=== PATIENT | male | born 1955 | race Caucasian/White ===

== ENCOUNTER 2018-05-27 06:03 | Day surgery (SDC) | payer OTHER ==
[2018-05-27] MEDS ORDERED: LR 1,000 ML IV ONE (06:11)
[2018-05-27] MEDS ORDERED: BUPIVACAINE 0.5% 30 ML SDV ONE (07:04)
[2018-05-27] MEDS ORDERED: cefOXitin SODIUM 2 GM in NS 100 ML IV ONE (07:27)
--- NOTE | 2018-05-27 07:28 | PDHPUP ---
History & Physical Update H&P update statement: This history and physical update is based on an assessment of the patient which was completed after admission or registration (within 24 hours), but prior to the surgery/procedure. H&P update: H&P reviewed & patient examined, no change in patient's condition since H&P completed
[2018-05-27] MEDS ORDERED: ONDANSETRON 4 MG/2 ML VIAL ONE (07:30)
[2018-05-27] MEDS ORDERED: ROCURONIUM 100 MG/10 ML VIAL ONE (07:30)
[2018-05-27] MEDS ORDERED: PROPOFOL 200 MG/20 ML VIAL ONE ×2 (07:30)
[2018-05-27] MEDS ORDERED: fentaNYL 250 MCG/5 ML INJ ONE (07:30)
--- NOTE | 2018-05-27 07:30 | PDANEPAE ---
ANE Past Medical History - Cardiovascular History Hx Hypertension: Yes Hx Arrhythmias: No Hx Chest Pain: No Hx Coronary Artery / Peripheral Vascular Disease: Yes Hx CHF / Valvular Disease: Yes Hx Palpitations: No Cardiovascular History Comment: RUNS 120/80 - Pulmonary History Hx COPD: No Hx Asthma/Reactive Airway Disease: No Hx Recent Upper Respiratory Infection: No Hx Oxygen in Use at Home: No Hx Sleep Apnea: No Sleep Apnea Screening Result - Last Documented: Positive - Neurologic History Hx Cerebrovascular Accident: No Hx Seizures: No Hx Dementia: No Neurologic History Comment: PERIPHERAL NEUROPATHY AMISHA FEET - Endocrine History Hx Diabetes: No Hypothyroid: No Hyperthyroid: No Obesity: no - Renal History Hx Renal Disorders: No - Liver History Hx Hepatic Disorders: No - Neurological & Psychiatric Hx Hx Neurological and Psychiatric Disorders: No - Cancer History Hx Cancer: No - Congenital Disorder History Hx Congenital Disorders: No - GI History Hx Gastrointestinal Disorders: Yes Gastrointestinal History Comment: ACID STOMACH - Other Health History Other Health History: NEG - Chronic Pain History Chronic Pain: No (NEUROPATHY) - Surgical History Prior Surgeries: FOOT R BUNIONECTOMY X 3 (W/INF X1 ). LOW BACK SURGERY ANE Review of Systems Review of Systems: - Exercise capacity METS (RN): 5 METS ANE Patient History - Allergies Allergies/Adverse Reactions: No Known Allergies Allergy (Unverified 08/30/09 00:19) - Home Medications Home Medications: Aspirin 81mg 08/30/09 [Last Taken 05/21/18] Zetia 08/30/09 [Last Taken 05/26/18] Gabapentin 05/14/18 [Last Taken 05/27/18 05:30] Herbals/Supplements -Info Only 05/14/18 [Last Taken 1 Week Ago ~05/20/18] Lisinopril 05/14/18 [Last Taken 05/27/18 05:30] Repatha Pushtronex 05/14/18 [Last Taken 1 Week Ago ~05/20/18] Sertraline HCl 05/14/18 [Last Taken 05/27/18 05:30] Finasteride 05/27/18 [Last Taken 05/27/18 05:30] Omeprazole 05/27/18 [Last Taken 05/27/18 05:30] - NPO status NPO Since - Liquids (Date): 05/26/18 NPO Since - Liquids (Time): 22:00 NPO Since - Solids (Date): 05/26/18 NPO Since - Solids (Time): 16:00 - Smoking Hx Smoking Status: Never smoked ANE Labs/Vital Signs - Vital Signs Blood Pressure: 143/98 Heart Rate: 56 Respiratory Rate: 16 O2 Sat (%): 94 Height: 179.07 cm Weight: 83.915 kg ANE Physical Exam - Airway Neck exam: FROM Mallampati Score: Class 1 Mouth exam: normal dental/mouth exam - Pulmonary Pulmonary: no respiratory distress - Cardiovascular Cardiovascular: regular rate and rhythym - ASA Status ASA Status: II ANE Anesthesia Plan Anesthesia Plan: general endotracheal anesthesia
[2018-05-27] MEDS ORDERED: LIDOCAINE 2% 100 MG/5 ML SYR ONE (07:31)
[2018-05-27] MEDS ORDERED: DEXAMETHASONE 4 MG/ML VIAL ONE (07:31)
[2018-05-27] MEDS ORDERED: GLYCOPYRROLATE 0.2 MG/1 ML VIAL ONE ×2 (07:52→07:58)
[2018-05-27] MEDS ORDERED: KETOROLAC 30 MG/1 ML SDV ONE (07:52)
[2018-05-27] MEDS ORDERED: NALOXONE HCL 0.4 MG/ML INJ IVP PRN (08:21)
[2018-05-27] MEDS ORDERED: ENALAPRILAT DIHYDRATE 1.25 MG/ML VIAL IVP PRN (08:21)
[2018-05-27] MEDS ORDERED: PROMETHAZINE HCL 25 MG/ML INJ IVP PRN (08:21)
[2018-05-27] MEDS ORDERED: fentaNYL 100 MCG/2 ML INJ IVP PRN (08:21)
[2018-05-27] MEDS ORDERED: HYDROCODONE/APAP 5/325 TAB PO PRN (08:21)
--- NOTE | 2018-05-27 08:40 | POSTOPPROG ---
Post Op Note Date of Operation: 05/27/18 Surgeon: Paresh Mack Anesthesiologist: Dr. Desai Anesthesia: GET(General Endotracheal) Pre-op Diagnosis: Cecal mass Post-op Diagnosis: same Procedure: Lap cecectomy Inf/Abcess present in the surg proc area at time of surgery?: No EBL: Minimal
--- NOTE | 2018-05-27 09:16 | POSTANESTH ---
Post Anesthetic Evaluation Cardiovascular Status: Normal, Stable Respiratory Status: Normal, Stable Level of Consciousness/Mental Status: Can Participate in Eval Pain Control: Adequate, Prn Tx Ordered Nausea/Vomiting Control: Adequate, Prn Tx Ordered Complications Possibly Related to Anesthesia: None Noted
--- NOTE | 2018-05-27 09:43 | GOP ---
DATE OF OPERATION: 05/27/2018 SURGEON: Sree Mack MD ANESTHESIA: General endotracheal anesthesia. ANESTHESIOLOGIST: Dr. Desai PREOPERATIVE DIAGNOSIS: Cecal mass. POSTOPERATIVE DIAGNOSIS: Cecal mass. PROCEDURE PERFORMED: Laparoscopic cecectomy. FINDINGS: Patient had a sessile polyp approximately 1.5 cm in diameter. No other lesions were ident ified. ESTIMATED BLOOD LOSS: 20 cc. INDICATIONS: 63-year-old male with a history of a cecal mass on colonoscopy. Risks and benefits of procedure discussed with patient, all questions were answered, and he wished to proceed. DESCRIPTION OF PROCEDURE: The patient was in the supine position. After the induction of adequate g eneral endotracheal anesthesia, the patient was prepped and draped in the standard surgical fashion. Marcaine 0.5% was injected throughout the infraumbilical area and a 5-mm incision was made. The abd ominal wall was elevated and the Veress needle was inserted. After noting proper pressures, the abdo men was insufflated with carbon dioxide. A 5-mm trocar was passed and the camera followed. There wa s no apparent damage with trocar placement. Two more ports were placed, one 5-mm port in the suprapu bic midline and one 12-mm port in the left lower quadrant. These were both placed under direct visio n after injecting 0.5% Marcaine for local anesthesia. The abdomen was inspected. The base of the appendix was then dissected. A window was opened in the mesentery using blunt dissection. An Endo ROSHAN stapler with a vascular load was passed across the mes oappendix and fired. A bowel load was then passed across the base of the appendix and fired. The te rminal ileum was seen to be clear of these firings. The appendix was placed into an Endo Catch bag a nd withdrawn through the 12-mm port. The abdomen was then inspected. Good hemostasis was noted. The fascia at the 12-mm port site was cl osed using 0 Vicryl in a [id number] fashion. The wounds were thoroughly irrigated and the skin at all sites was closed with 4-0 Monocryl in a subcuticular stitch. The wounds were sterilely dresse d. The patient was extubated and taken to the PACU in stable condition. COMPLICATIONS: None. DRAINS: None. ADDENDUM: The base of the cecum was cleared off carefully from the terminal ileum. The stapler was fired just adjacent to the terminal ileum, being certain not to compromise its flow. The specimen wa s withdrawn through an EndoCatch bag and then opened on the back table. This demonstrated the polyp clearly with good margins. No other lesions were identified. /[id number]/MODL
[2018-05-27] MEDS ORDERED: HYDROCODONE/APAP 5/325 TAB ONE (10:26)
[2018-05-27 11:36] VITALS: BP 132/83
== END 2018-05-27 11:09 | disposition home or self-care (01) ==
LOC: FSGY 06:03
PROVIDERS: ATTEND Surgery
PROC: 0DTJ4ZZ Resection of Appendix, Percutaneous Endoscopic Approach (ICD-10-PCS; principal; 2018-05-27 07:15)
PROC: 0DBH4ZX Excision of Cecum, Percutaneous Endoscopic Approach, Diagnostic (ICD-10-PCS; principal; 2018-05-27 07:15)
DX: D12.0 Benign neoplasm of cecum (principal); E78.5 Hyperlipidemia, unspecified
CPT/HCPCS: J0694; J1100; J1885; J2001; J2405; J2704; J3010

== ENCOUNTER → 2018-09-03 | Outpatient (CLI) | payer OTHER | LOC: BMCIMAGING 08:06 | PROVIDERS: ATTEND Physician Assistant | DX: M25.762 Osteophyte, left knee (principal) ==